=== PATIENT | male | born 1985 | race Two or more races ===

== ENCOUNTER 2024-12-28 18:24 | Emergency (ER) | payer OTHER ==
[~2024-12-28] VITALS: Ht 165.1 cm; Wt 90.7 kg
[2024-12-28] MEDS ORDERED: HALOPERIDOL LACTATE INJ 5 MG/ML VIAL ONE ×2 (18:38→19:39)
[2024-12-28] MEDS: HALOPERIDOL LACTATE INJ 5 MG/ML VIAL IVP ONE (18:48)
[2024-12-28] MEDS: IV NS 0.9% 1,000 ML BAG IV ONE (18:48)
[2024-12-28 19:04] LABS: PLATELET COUNT (AUTO) 419 K/uL (150-450); RED BLOOD CELL COUNT(AUTO) 6.41 MIL/uL (4.5-6.0); RED CELL DISTRIBUTION WIDTH 14.9 % (11.5-15.0); WHITE BLOOD COUNT (AUTO) 17.2 K/uL (4.3-11.0)
[2024-12-28 19:22] LABS: APPEARANCE,URINE CLEAR (CLEAR); BLOOD, URINE TRACE-INTA Ery/uL (NEGATIVE); LEUKOCYTE ESTERASE ,URINE NEGATIVE (NEGATIVE); NITRITE, URINE NEGATIVE (NEGATIVE); UGLUCOSE NEGATIVE (NEGATIVE)
[2024-12-28 19:25] LABS: CALCIUM, SERUM 10.1 mg/dL (8.5-10.1); CREATININE 1.4 mg/dL (0.6-1.3); SODIUM SERUM 145 mmol/L (136-145); UREA NITROGEN, BLOOD 26 mg/dL (7-18)
[2024-12-28 19:30] LABS: ALCOHOL, BLOOD < 3 mg/dL (0-10); ASPARTATE AMINOTRANSFERASE 40 U/L (15-37); TOTAL PROTEIN, SERUM 9.1 g/dL (6.4-8.2)
[2024-12-28 19:32] LABS: ADD URINE CULTURE NO; SQUAMOUS EPITHELIAL CELL,UR None Seen /HPF (None Seen)
[2024-12-28] MEDS ORDERED: BENZTROPINE MESYLATE (1 MG) 1 MG TABLET ONE (19:40)
[2024-12-28 19:43] LABS: BARBITURATE, URINE NEGATIVE (NEGATIVE); BENZODIAZEPINE, URINE NEGATIVE (NEGATIVE); COCCAINE, URINE NEGATIVE (NEGATIVE); OPIATE, URINE NEGATIVE (NEGATIVE)
[2024-12-28] MEDS: HALOPERIDOL LACTATE INJ 5 MG/ML VIAL IV ONE (19:52)
[2024-12-28] MEDS: BENZTROPINE MESYLATE (1 MG) 1 MG TABLET PO ONE (19:52)
[2024-12-28 20:08] LABS: AMPHETAMINE, URINE POSITIVE (NEGATIVE); CANNABINOID, URINE POSITIVE (NEGATIVE)
[2024-12-28 21:04] VITALS: BP 156/90; TEMP 98.1; O2SAT 95
== END 2024-12-28 21:05 | disposition home or self-care (01) ==
LOC: ER 18:33
DX: S40.022A Contusion of left upper arm, initial encounter (principal); F15.10 Other stimulant abuse, uncomplicated; F43.0 Acute stress reaction; E86.0 Dehydration; E87.6 Hypokalemia; R25.1 Tremor, unspecified; R74.01 Elevation of levels of liver transaminase levels; Z20.822 Contact with and (suspected) exposure to COVID-19; X58.XXXA Exposure to other specified factors, initial encounter; Y93.89 Activity, other specified; Y92.89 Other specified places as the place of occurrence of the external cause; Y99.8 Other external cause status
CPT/HCPCS: 99285; 96374; 96361; 93005; 71045; 96376; 73090; 85025; 80048; 80076; 81001; 36415; 82962; 87426; 80143; 80320; 80307; J1630 ×2; G0480